=== PATIENT | female | born 1955 | race Caucasian/White ===

== ENCOUNTER 2016-04-12 12:43 | Emergency (ER) | payer MEDICAID ==
[~2016-04-12] VITALS: Ht 170.2 cm; Wt 63.5 kg
[2016-04-12] MEDS ORDERED: cloNIDine HCL 0.1 MG TAB PO ONE (13:15)
[2016-04-12 14:11] VITALS: BP 149/75
== END 2016-04-12 14:16 | disposition home or self-care (01) ==
LOC: EDBD 12:43 → ER 12:48
DX: I10 Essential (primary) hypertension (principal); F17.210 Nicotine dependence, cigarettes, uncomplicated; Z88.0 Allergy status to penicillin

== ENCOUNTER 2016-08-16 10:17 | Emergency (ER) | payer MEDICAID ==
[~2016-08-16] VITALS: Ht 170.2 cm; Wt 63.5 kg
[2016-08-16 10:41] VITALS: BP 135/73
== END 2016-08-16 11:06 | disposition home or self-care (01) ==
LOC: ER 10:17
DX: S39.012A Strain of muscle, fascia and tendon of lower back, initial encounter (principal); F17.210 Nicotine dependence, cigarettes, uncomplicated; I10 Essential (primary) hypertension; G89.29 Other chronic pain; X58.XXXA Exposure to other specified factors, initial encounter; Y93.89 Activity, other specified; Y99.8 Other external cause status; Y92.89 Other specified places as the place of occurrence of the external cause; Z88.0 Allergy status to penicillin
CPT/HCPCS: 93005

== ENCOUNTER 2018-06-08 01:19 | Emergency (ER) | payer MEDICAID ==
[~2018-06-08] VITALS: Ht 170.2 cm; Wt 64.4 kg
[2018-06-08] MEDS ORDERED: HYDROcodone-ACET 10/325MG TAB PO ONE (03:45)
[2018-06-08 03:58] VITALS: BP 158/72
[2018-06-08] MEDS ORDERED: KETOROLAC TROMETH 60MG/2ML VIAL IM ONE (04:15)
== END 2018-06-08 05:06 | disposition home or self-care (01) ==
LOC: ER 01:21
DX: S52.571A Other intraarticular fracture of lower end of right radius, initial encounter for closed fracture (principal); S52.614A Nondisplaced fracture of right ulna styloid process, initial encounter for closed fracture; I10 Essential (primary) hypertension; F17.210 Nicotine dependence, cigarettes, uncomplicated; Z88.0 Allergy status to penicillin; W01.0XXA Fall on same level from slipping, tripping and stumbling without subsequent striking against object, initial encounter; Y93.89 Activity, other specified; Y92.098 Other place in other non-institutional residence as the place of occurrence of the external cause; Y99.8 Other external cause status
CPT/HCPCS: 29125; 73110; 96372; 99283; J1885

== ENCOUNTER 2019-12-08 11:19 | Emergency (ER) | payer MEDICAID ==
[~2019-12-08] VITALS: Ht 167.6 cm; Wt 62.6 kg
[2019-12-08 12:46] VITALS: BP 129/75
== END 2019-12-08 13:06 | disposition home or self-care (01) ==
LOC: ER 11:19
DX: Z48.01 Encounter for change or removal of surgical wound dressing (principal)

== ENCOUNTER 2020-03-03 03:05 | Emergency (ER) | payer MEDICAID ==
[~2020-03-03] VITALS: Ht 165.1 cm; Wt 63.5 kg
[2020-03-03 04:50] VITALS: BP 129/82
== END 2020-03-03 04:55 | disposition left against medical advice (07) ==
LOC: ER 03:05 → EDBD 03:05 → ER 04:55
DX: T78.40XA Allergy, unspecified, initial encounter (principal); Z53.21 Procedure and treatment not carried out due to patient leaving prior to being seen by health care provider; X58.XXXA Exposure to other specified factors, initial encounter